=== PATIENT | female | born 1975 | race Caucasian/White ===

== ENCOUNTER 2017-06-16 13:26 | Emergency (ER) | payer OTHER ==
[~2017-06-16] VITALS: Ht 157.5 cm; Wt 86.3 kg
[2017-06-16 14:42] LABS: MCH 29.8 PG (29.0-34.0); MCHC 32.9 G/DL (30.0-36.0); MCV 90.7 FL (83-99); PLATELET COUNT 299 K/uL (156-360); RBC DIS.WIDTH-CV 14.5 % (11.8-14.6); RBC DIS.WIDTH-SD 48.5 % (39-53); RED BLOOD COUNT 4.19 M/uL (3.80-5.20); WHITE BLOOD COUNT 7.8 K/uL (4.1-10.2)
[2017-06-16 14:50] LABS: CHLORIDE 106 mEq/L (99-109)
[2017-06-16 14:51] LABS: POTASSIUM 3.4 mEq/L (3.7-5.4); SODIUM 140 mEq/L (136-147)
[2017-06-16 14:52] LABS: GLUCOSE 90 mg/dL (70-99)
[2017-06-16 14:54] LABS: ANION GAP 10 MEQ/L (2-14)
[2017-06-16 14:55] LABS: SERUM ETHYL ALCOHOL < 10 mg/dL
[2017-06-16 14:56] LABS: GFR ESTIMATE (CALCULATED) > 59 mL/min/
[2017-06-16 14:58] LABS: UREA NITROGEN (BUN) 7 mg/dL (9-23)
[2017-06-16 14:59] LABS: SALICYLATE < 5.0 MG/DL (15-30)
[2017-06-16 15:46] VITALS: BP 139/81
== END 2017-06-16 15:47 | disposition home or self-care (01) ==
LOC: EME 13:26
PROVIDERS: Emergency Medicine
DX: F25.0 Schizoaffective disorder, bipolar type (principal); Z72.0 Tobacco use; Z88.0 Allergy status to penicillin; Z88.8 Allergy status to other drugs, medicaments and biological substances
CPT/HCPCS: 80048; 85027; 90837; 99281; 99285; G0480; Q0177

== ENCOUNTER 2017-06-22 16:28 | Inpatient (IN) | payer OTHER ==
[~2017-06-22] VITALS: Ht 157.5 cm; Wt 85.4 kg
[2017-06-22 17:14] LABS: HEMATOCRIT 41.6 % (36.0-46.0); HEMOGLOBIN 13.7 G/DL (11.9-15.5); MCH 29.9 PG (29.0-34.0); MCHC 32.9 G/DL (30.0-36.0); MCV 90.8 FL (83-99); RBC DIS.WIDTH-CV 14.6 % (11.8-14.6); RBC DIS.WIDTH-SD 49.5 % (39-53); RED BLOOD COUNT 4.58 M/uL (3.80-5.20)
[2017-06-22 17:33] LABS: CHLORIDE 103 mEq/L (99-109); POTASSIUM 3.3 mEq/L (3.7-5.4); SODIUM 137 mEq/L (136-147)
[2017-06-22 17:35] LABS: GLUCOSE 94 mg/dL (70-99)
[2017-06-22 17:38] LABS: SERUM ETHYL ALCOHOL < 10 mg/dL
[2017-06-22 17:39] LABS: CREATININE 0.8 mg/dL (0.6-1.3); GFR ESTIMATE (CALCULATED) > 59 mL/min/
[2017-06-22 17:40] LABS: UREA NITROGEN (BUN) 7 mg/dL (9-23)
[2017-06-22 17:55] LABS: AMPHETAMINE NEGATIVE (500 ng/mL); BARBITURATES NEGATIVE (200 ng/mL); BENZODIAZEPINES NEGATIVE (150 ng/mL); BUPRENORPHINE NEGATIVE (10 ng/mL); COCAINE NEGATIVE (150 ng/mL); METHADONE NEGATIVE (200 ng/mL); METHAMPHETAMINE NEGATIVE (500 ng/mL); OPIATES (MORPHINE) NEGATIVE (100 ng/mL); OXYCODONE NEGATIVE (100 ng/mL); PHENCYCLIDINE NEGATIVE (25 ng/mL); PROPOXYPHENE NEGATIVE (300 ng/mL); THC CANNABINOIDS PRESUMPTIVE POSITIVE (50 ng/mL); TRICYCLIC ANTIDEPRESSANTS NEGATIVE (300 ng/mL)
[2017-06-22 18:31] LABS: PLAT.SUFFICIENCY ADEQUATE; PLATELET COUNT 354 K/uL (156-360)
[2017-06-22 20:18] VITALS: BP 128/69
[2017-06-22] MEDS ORDERED: RITALIN20 MG PO (21:21)
[2017-06-22] MEDS ORDERED: RITALIN10 MG PO (21:24)
[2017-06-22] MEDS ORDERED: DEPAKOTE500 MG PO (21:26)
[2017-06-22] MEDS ORDERED: ABILIFY20 MG PO (21:27)
[2017-06-22] MEDS ORDERED: REMERON30 M2 PO (21:28)
[2017-06-23 07:36] VITALS: BP 106/59
[2017-06-23 15:33] VITALS: BP 107/53
[2017-06-24 07:52] VITALS: BP 114/57
[2017-06-24 15:40] VITALS: BP 107/66
[2017-06-25 09:28] VITALS: BP 129/74
[2017-06-25 16:07] VITALS: BP 143/73
[2017-06-26 07:49] VITALS: BP 105/61
[2017-06-26] MEDS ORDERED: TRILAFON2 MG PO (10:15)
== END 2017-06-26 12:45 | disposition home or self-care (01) | DRG 885 ==
LOC: EME 16:28 → 1WEST 19:38 → EDOF 19:38 → ENRESERVTM 19:57 → ENRESERVDT 19:57 → ENRESERV 19:57 → 1WEST 20:07
DX: F25.0 Schizoaffective disorder, bipolar type (principal); F17.200 Nicotine dependence, unspecified, uncomplicated; F12.90 Cannabis use, unspecified, uncomplicated; F41.9 Anxiety disorder, unspecified; E66.01 Morbid (severe) obesity due to excess calories; Z68.34 Body mass index [BMI] 34.0-34.9, adult
CPT/HCPCS: 80048; 84999; 85027; 90839; 97150 GO; 97166 GO; 99281; 99285; G0480; Q0175; Q0177